=== PATIENT | male | born 1955 | race Caucasian/White ===

== ENCOUNTER 2019-12-22 06:58 | Outpatient (REF) | payer OTHER, SELFPAY ==
[2019-12-22 07:40] LABS: Hematocrit 35.2 % (42-52); Hemoglobin 10.9 g/dl (14.0-18.0); Mean Corpuscular Hemoglobin 26.1 pg (27.0-33.0); Mean Corpuscular Volume 84.2 fL (80-98); NRBC Pct Auto 0.1 /100WBC (0.0-0.2); Red Blood Count 4.18 X10*6/uL (4.60-5.80); Red Cell Distribution Width 27.5 % (11.0-16.0); White Blood Count 18.5 X10*3/uL (4.8-10.8)
[2019-12-22 07:41] LABS: Platelet Count 89 X10*3/uL (160-400)
[2019-12-22 08:21] LABS: Alanine Aminotransferase 162 U/L (0-40); Albumin Level 2.9 g/dL (3.5-5.0); Alkaline Phosphatase 620 U/L (39-117); Anion Gap 17 (12-20); Aspartate Amino Transferase 219 U/L (5-37); Bilirubin Total 2.5 mg/dL (0.0-1.0); Blood Urea Nitrogen 29 mg/dL (9-16); Calcium 7.5 mg/dL (8.4-10.2); Carbon Dioxide 25 mmol/L (22-29); Chloride 100 mmol/L (96-108); Estimated Glomerular Filt Rate 41; Glucose Random 83 mg/dL (60-115); Potassium 4.1 mmol/l (3.3-5.1); Sodium 138 mmol/L (135-145); Total Protein 6.1 g/dL (6.5-8.0)
== END 2019-12-22 06:59 | disposition home or self-care (01) ==
LOC: HO.MMNH1L 06:58
PROVIDERS: Visit Provider Family Medicine
DX: A41.9 Sepsis, unspecified organism (principal); I10 Essential (primary) hypertension; K74.60 Unspecified cirrhosis of liver
CPT/HCPCS: 36415; 80053; 85027

== ENCOUNTER 2019-12-24 07:00 | Outpatient (REF) | payer OTHER, SELFPAY ==
[2019-12-24 07:49] LABS: Ammonia 55 umol/L (13-55)
[2019-12-24 08:08] LABS: Alanine Aminotransferase 158 U/L (0-40); Albumin Level 2.9 g/dL (3.5-5.0); Alkaline Phosphatase 571 U/L (39-117); Aspartate Amino Transferase 224 U/L (5-37); Bilirubin Total 2.6 mg/dL (0.0-1.0); Total Protein 6.2 g/dL (6.5-8.0)
== END 2019-12-24 07:01 | disposition home or self-care (01) ==
LOC: HO.MMNH1L 07:00
PROVIDERS: PCP Family Medicine; Visit Provider Family Medicine
DX: A41.9 Sepsis, unspecified organism (principal)
CPT/HCPCS: 80076; 82140

== ENCOUNTER 2019-12-26 | Outpatient (REF) | payer OTHER, SELFPAY ==
[2019-12-26 08:41] LABS: Red Blood Count 4.22 X10*6/uL (4.60-5.80)
[2019-12-26 08:42] LABS: Hematocrit 36.4 % (42-52); Hemoglobin 11.1 g/dl (14.0-18.0); Mean Corpuscular HGB Conc 30.5 g/dl (31.0-36.0); Mean Corpuscular Hemoglobin 26.3 pg (27.0-33.0); Mean Corpuscular Volume 86.3 fL (80-98); Red Cell Distribution Width 26.5 % (11.0-16.0); White Blood Count 23.2 X10*3/uL (4.8-10.8)
[2019-12-26 09:07] LABS: PLT ABN DIST 1; Platelet Count 82 X10*3/uL (160-400)
[2019-12-26 10:04] LABS: Anion Gap 20 (12-20); Blood Urea Nitrogen 51 mg/dL (9-16); Calcium 7.9 mg/dL (8.4-10.2); Carbon Dioxide 25 mmol/L (22-29); Chloride 99 mmol/L (96-108); Estimated Glomerular Filt Rate 35; Glucose Random 100 mg/dL (60-115); Sodium 140 mmol/L (135-145)
== END 2019-12-26 00:01 | disposition home or self-care (01) ==
LOC: HO.MMNH1L
PROVIDERS: Visit Provider Family Medicine
DX: I10 Essential (primary) hypertension (principal); K74.60 Unspecified cirrhosis of liver; A41.9 Sepsis, unspecified organism
CPT/HCPCS: 36415; 80048; 85027

== ENCOUNTER 2019-12-28 06:46 | Outpatient (REF) | payer OTHER, MEDICAID, SELFPAY ==
[2019-12-28 07:03] LABS: Hematocrit 35.7 % (42-52); Mean Corpuscular HGB Conc 30.8 g/dl (31.0-36.0); Mean Corpuscular Hemoglobin 26.3 pg (27.0-33.0); Mean Corpuscular Volume 85.4 fL (80-98); Red Blood Count 4.18 X10*6/uL (4.60-5.80); Red Cell Distribution Width 25.1 % (11.0-16.0); White Blood Count 20.5 X10*3/uL (4.8-10.8)
[2019-12-28 07:10] LABS: Platelet Count 86 X10*3/uL (160-400)
[2019-12-28 07:11] LABS: PLT ABN DIST 1
[2019-12-28 07:26] LABS: Ammonia 52 umol/L (13-55)
[2019-12-28 07:40] LABS: Alanine Aminotransferase 70 U/L (0-40); Albumin Level 3.3 g/dL (3.5-5.0); Alkaline Phosphatase 843 U/L (39-117); Anion Gap 18 (12-20); Aspartate Amino Transferase 72 U/L (5-37); Bilirubin Total 3.7 mg/dL (0.0-1.0); Blood Urea Nitrogen 64 mg/dL (9-16); Calcium 8.1 mg/dL (8.4-10.2); Carbon Dioxide 25 mmol/L (22-29); Chloride 98 mmol/L (96-108); Estimated Glomerular Filt Rate 29; Glucose Random 123 mg/dL (60-115); Potassium 4.4 mmol/l (3.3-5.1); Sodium 137 mmol/L (135-145); Total Protein 7.1 g/dL (6.5-8.0)
[2019-12-28 07:57] LABS: Glucose Urine UA NEG (NEG); Leukocyte Esterase Urine NEG (NEG); Nitrite Urine POS (NEG); PH 5.5 (5.0-8.0); Specific Gravity - Urine 1.025 (1.005-1.025); Urine Blood 1+ (NEG); Urine Ketones NEG (NEG); Urine Protein 1+ MG/DL (NEG-TRACE)
[2019-12-28 08:01] LABS: Appearance Urine TURBID; Color Urine DARK YELLOW
[2019-12-28 08:29] LABS: Amorphous Sediment Urine 3+ /LPF; Bacteria Urine 2+ /LPF; Squamous Epithelial Cell Urine 1+ /LPF
== END 2019-12-28 06:47 | disposition home or self-care (01) ==
LOC: HO.MMNH1L 06:46
PROVIDERS: Visit Provider Family Medicine
DX: C25.9 Malignant neoplasm of pancreas, unspecified (principal)
CPT/HCPCS: 36415; 80053; 81001; 81003; 82140; 85027; 87086

== ENCOUNTER 2020-01-02 | Outpatient (REF) | payer OTHER, SELFPAY ==
[2020-01-02 05:23] LABS: Red Cell Distribution Width 23.6 % (11.0-16.0)
[2020-01-02 05:25] LABS: Hematocrit 35.9 % (42-52); Mean Corpuscular HGB Conc 30.6 g/dl (31.0-36.0); Mean Corpuscular Hemoglobin 26.2 pg (27.0-33.0); Mean Corpuscular Volume 85.5 fL (80-98); White Blood Count 24.6 X10*3/uL (4.8-10.8)
[2020-01-02 05:51] LABS: Estimated Average Glucose 77 mg/dL; Hemoglobin A1c % 4.3 %
[2020-01-02 05:56] LABS: Anion Gap 16 (12-20); Blood Urea Nitrogen 36 mg/dL (9-16); Calcium 7.9 mg/dL (8.4-10.2); Carbon Dioxide 28 mmol/L (22-29); Chloride 104 mmol/L (96-108); Estimated Glomerular Filt Rate 42; Glucose Random 111 mg/dL (60-115); Potassium 4.4 mmol/l (3.3-5.1); Sodium 144 mmol/L (135-145)
[2020-01-02 05:57] LABS: PLT ABN DIST 1; Platelet Count 75 X10*3/uL (160-400)
[2020-01-02 06:50] LABS: Ammonia 40 umol/L (13-55)
== END 2020-01-02 00:01 | disposition home or self-care (01) ==
LOC: HO.MMNH1L
PROVIDERS: Visit Provider Family Medicine
DX: U07.1 COVID-19 (principal); R65.20 Severe sepsis without septic shock; N17.9 Acute kidney failure, unspecified
CPT/HCPCS: 36415; 80048; 82140; 83036; 85027; U0003